=== PATIENT | male | born 1980 | race Caucasian/White ===

== ENCOUNTER 2021-10-07 15:49 | Outpatient (CLI) | payer OTHER, SELFPAY | END 2021-10-07 16:00 | disposition home or self-care (01) | LOC: ANHLAB 10-11 07:40 | PROVIDERS: PCP Internal Medicine; Visit Provider Nurse Practitioner | DX: K13.70 Unspecified lesions of oral mucosa (principal) | CPT/HCPCS: 87252; 87255 ==

== ENCOUNTER 2024-12-28 03:20 | Day surgery (SDC) | payer OTHER, SELFPAY ==
[2024-12-17 11:53] VITALS: BMI 26.9
[2024-12-28 13:21] VITALS: BP 100/73; PULSE 62; RESP 18; TEMP 36.5; O2SAT 99
[2024-12-28] MEDS: LACTATED RINGERS 1,000 ML 150 ML IV CONT (13:35)
--- NOTE | 2024-12-28 14:20 | PM.IMHP ---
H&P: HPI History of Present Illness Date/Time: 12/28/24 14:20 Chief Complaint: Family history of colon polyps Narrative: This patient has family history of colorectal polyps. His mother had polyps when she was in her 50s. This is the patient's 1st screening colonoscopy. Review of Systems Review of Systems: All systems reviewed & are unremarkable except as noted in HPI and below PMFSH Family History Family History Mother Patient's mother is in good health Father Patient's father is in good health Sibling Patient's sister is in good health Patient's brother is in good health Social History Social History Smoking packs per day: 0.75 Smoking cigarettes per day: 15.0 Years smoked: 6 Smoking pack-years: 4.50 Smoking status: Former smoker Tobacco type: cigarettes Second hand tobacco smoke exposure: Yes Smoking end date: 03/18/04 Alcohol intake: current Drinks per week: 3 Alcohol use details: Social Substance use: never Substance use type: does not use Lack of Transportation: No Lack of Food: Never True Current Housing: I Have Housing Concerned About Future Housing: No Difficulty Paying Gas/Electric Bills: No Difficulty Paying for Meds: No Currently Unemployed: No Education: Master's Degree or Higher Difficulty w/ Childcare or Family Care: No Living arrangements: with family Spiritual care concerns: No Meds Home Medications and Allergies Home Medications ?Medication ?Instructions ?Recorded ?Confirmed ?Type ascorbic acid (vitamin C) 1,000 mg 1 g PO DAILY 09/12/20 12/28/24 History tablet multivitamin (Daily Multi-Vitamin 1 tablet PO DAILY 09/12/20 12/28/24 History tablet) triamcinolone acetonide 0.1 % 1 applic dental TID #5 grams 09/20/21 12/28/24 Rx dental paste testosterone (AndroGel) 2 pump topical DAILY #75 grams 12/13/24 12/28/24 Rx Allergies Allergy/AdvReac Type Severity Reaction Status Date / Time No Known Allergies Allergy Verified 12/28/24 13:20 Vital Signs Vital Signs - 24 hr 12/28/24 13:21 Temperature 97.7 F Pulse Rate 62 Respiratory Rate 18 Blood Pressure 100/73 Pulse Oximetry 99 Oxygen Delivery Room Air Exam Const: General: cooperative and healthy appearing Resp: Effort & Inspection: normal respiratory effort and able to speak in complete sentences Auscultation: clear to auscultation bilaterally Cardio: Rate: regular rate Rhythm: regular rhythm GI: Inspection: normal to inspection GI Palp: No No hepatosplenomegaly present Auscultation: normal bowel sounds Rectal Exam: deferred Skin: General skin exam: normal color Psych: Appearance: grossly normal Mental Status: mental status grossly normal Assessment and Plan Assessment and plan (1) Encounter for screening colonoscopy: Code(s): Z12.11 - Encounter for screening for malignant neoplasm of colon Status: Acute Assessment and Plan: The patient is deemed a good candidate for the procedure. Consent signed. Will proceed.
[2024-12-28] MEDS: SIMETHICONE ORAL SUSPENSION 20 MG/0.3 ML 30 ML BOTTLE 0.6 ML IRRIGATION (14:34)
--- NOTE | 2024-12-28 14:44 | S_PTH ---
PATIENT: Jose J Soriano LOC: [facility] U#:[id number] AGE/SX: 44/M ROOM: RE12/28/[address]: Bossman Nascimento MD : 1980 BED: DIS: 12/28/2024 SPEC #: [id number] RECD: 12/29/24 08:06 STATUS: VIRGILIO HERNANDEZ #: [id number] FRIDA: 12/28/24 14:[address]: Bossman Nascimento DEPT: [facility] Surgical RECD BY: Tiffani Sky ENTERED: 12/29/24 08:07 SP TYPE: Surgical OTHR DR: Isaak Woods, Tissues: A - Colon Polypectomy B - Colon Polypectomy C - Colon Polypectomy Procedures: Hematoxylin and Eosin Stain Gross and Microscopic Level 4
[2024-12-28 14:45] VITALS: BP 95/61; PULSE 68; RESP 17; O2SAT 99
[2024-12-28 14:55] VITALS: BP 98/48; PULSE 65; RESP 17; O2SAT 98
[2024-12-28 15:05] VITALS: BP 101/71; PULSE 62; RESP 16; O2SAT 100
--- NOTE | 2024-12-28 15:15 | WPDANESEPPF ---
Anes - Initial Pre Proc Eval Procedure: Operation Date: 12/28/24 14:00 Proposed Procedures p Screening Colonoscopy - Bossman Nascimento MD Date/Time: 12/28/24 15:15 Surgeon: Bossman Nascimento MD Pre Op Diagnosis: Screening Patient Data Age: 44 Gender: M Height: 1.88 m Weight: 93.6 kg Last Vital Signs Temp 36.5 C 12/28/24 13:21 Pulse 62 12/28/24 15:05 Resp 16 12/28/24 15:05 BP 101/71 12/28/24 15:05 Pulse Ox 100 12/28/24 15:05 O2 Del Method Room Air 12/28/24 15:05 Allergies Allergy/AdvReac Type Severity Reaction Status Date / Time No Known Allergies Allergy Verified 12/28/24 13:20 Home Medications ?Medication ?Instructions ?Recorded ?Confirmed ?Type ascorbic acid (vitamin C) 1,000 mg 1 g PO DAILY 09/12/20 12/28/24 History tablet multivitamin (Daily Multi-Vitamin 1 tablet PO DAILY 09/12/20 12/28/24 History tablet) triamcinolone acetonide 0.1 % 1 applic dental TID #5 grams 09/20/21 12/28/24 Rx dental paste testosterone (AndroGel) 2 pump topical DAILY #75 grams 12/13/24 12/28/24 Rx Patient hx anesthesia problems: none Family hx anesthesia problems: none Results Review: All pre-operative results and documents have been reviewed as part of the pre-operative evaluation. [facility] Family History Family History Mother Patient's mother is in good health Father Patient's father is in good health Sibling Patient's sister is in good health Patient's brother is in good health Social History Social History Smoking packs per day: 0.75 Smoking cigarettes per day: 15.0 Years smoked: 6 Smoking pack-years: 4.50 Smoking status: Former smoker Tobacco type: cigarettes Second hand tobacco smoke exposure: Yes Smoking end date: 03/18/04 Alcohol intake: current Drinks per week: 3 Alcohol use details: Social Substance use: never Substance use type: does not use Lack of Transportation: No Lack of Food: Never True Current Housing: I Have Housing Concerned About Future Housing: No Difficulty Paying Gas/Electric Bills: No Difficulty Paying for Meds: No Currently Unemployed: No Education: Master's Degree or Higher Difficulty w/ Childcare or Family Care: No Living arrangements: with family Spiritual care concerns: No Anes - Eval Final PreProcedure Day of Procedure 12/28/24 15:15 Patient weight: overweight Heart: regular rate and rhythm Lungs: clear to auscultation Airway: Mallampati scale class II Neurological: alert and oriented Last oral intake: >/= 8 hours ASA classification: I Emergent: no Anesthetic plan: proceed Anesthesia type and monitoring: general GIVS and standard monitoring Results Review: All pre-operative results and documents have been reviewed as part of the pre-operative evaluation. Informed Consent: The patient's anesthetic plan and its attendant risks and benefits were discussed with the patient/family/POA. Questions were solicited and answers provided to the satisfaction of the patient/family/POA.
== END 2024-12-28 15:12 | disposition home or self-care (01) ==
PROVIDERS: PCP Internal Medicine; Referring Provider Internal Medicine; Visit Provider Internal Medicine Gastroenterology
PROC: 0DJD8ZZ Inspection of Lower Intestinal Tract, Via Natural or Artificial Opening Endoscopic (ICD-10-PCS; CPT 45378; principal; 2024-12-28 14:00)
DX: Z12.11 Encounter for screening for malignant neoplasm of colon (principal); D12.3 Benign neoplasm of transverse colon; D12.5 Benign neoplasm of sigmoid colon; D12.2 Benign neoplasm of ascending colon; Z87.891 Personal history of nicotine dependence; Z83.719 Family history of colon polyps, unspecified
CPT/HCPCS: 45385; 88305; J2704; J7120